=== PATIENT | female | born 1995 | race Caucasian/White ===

== ENCOUNTER 2018-05-21 00:55 | Inpatient (IN) | payer BC ==
[~2018-05-21] VITALS: Ht 162.6 cm; Wt 47.2 kg
[2018-05-21] MEDS ORDERED: Sodium Chloride 500ML 500 ML IV ONE (00:59)
[2018-05-21] MEDS ORDERED: Solu-MEDROL 125mg Inj IVP ONE (01:00)
[2018-05-21] MEDS ORDERED: DiphenhydrAMINE 50mg/ml Inj IVP ONE (01:00)
[2018-05-21 01:26] VITALS: BP 105/45
[2018-05-21 01:32] LABS: EOSINOPHILS % (AUTO) 2.7 % (0.0-3.0); HEMATOCRIT 42.6 % (37.0-47.0); HEMOGLOBIN 14.1 G/DL (12.0-16.0); LYMPHOCYTES % (AUTO) 40.7 % (20.0-45.0); MEAN CORPUSCULAR VOLUME 85 FL (80-99); MONOCYTES % (AUTO) 4.1 % (1.0-10.0); NEUTROPHILS % (AUTO) 51.5 % (45.0-75.0); PLATELET COUNT 271 K/UL (150-450); RED BLOOD COUNT 4.99 M/UL (4.20-5.40); RED CELL DISTRIBUTION WIDTH 12.5 % (11.6-14.8); WHITE BLOOD COUNT 8.8 K/UL (4.8-10.8)
[2018-05-21 01:43] LABS: ANION GAP 16 mmol/L (5-15); BLOOD UREA NITROGEN 19 mg/dL (7-18); CALCIUM 8.2 MG/DL (8.5-10.1); CARBON DIOXIDE 19 MMOL/L (21-32); CHLORIDE 104 MMOL/L (98-107); POTASSIUM 3.2 MMOL/L (3.5-5.1); SODIUM 139 MMOL/L (136-145)
[2018-05-21 01:54] LABS: ALANINE AMINOTRANSFERASE 30 U/L (12-78); ALBUMIN 3.5 G/DL (3.4-5.0); ALBUMIN/GLOBULIN RATIO 1.1 (1.0-2.7); ALKALINE PHOSPHATASE 40 U/L (46-116); ASPARTATE AMINO TRANSFERASE 31 U/L (15-37); BILIRUBIN,TOTAL 0.1 MG/DL (0.2-1.0); CREATINE KINASE 214 U/L (26-308)
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
--- NOTE | 2018-05-21 02:52 | Diagnostic Imaging Report ---
EXAM: XR Chest, 1 View CLINICAL HISTORY: DYSPNEA TECHNIQUE: Frontal view of the chest. COMPARISON: No relevant prior studies available. FINDINGS: Lungs: Unremarkable. No consolidation. Pleural space: Unremarkable. No pneumothorax. Heart: Unremarkable. No cardiomegaly. Mediastinum: Unremarkable. Bones/joints: Unremarkable. IMPRESSION: No acute findings.
[2018-05-21 05:25] VITALS: BP 98/35
[2018-05-21] MEDS ORDERED: TOPAMAX25 MG ORAL (05:30)
[2018-05-21] MEDS ORDERED: NALTREXONE HCL50 MG PO (05:30)
[2018-05-21] MEDS ORDERED: PROZAC20 MG ORAL (05:30)
[2018-05-21] MEDS ORDERED: VIVANCE PO (05:30)
[2018-05-21] MEDS ORDERED: SPIRONOLACTONE50 MG ORAL (05:30)
[2018-05-21 06:40] VITALS: BP 95/40
[2018-05-21 07:10] LABS: APPEARANCE,URINE CLEAR; BILIRUBIN, URINE NEGATIVE (NEGATIVE); COLOR,URINE PALE YELLOW; GLUCOSE, URINE (UA) NEGATIVE (NEGATIVE); KETONES,URINE 1+ (NEGATIVE); LEUKOCYTE ESTERASE ,URINE 2+ (NEGATIVE); NITRITE,URINE NEGATIVE (NEGATIVE); PH,URINE 5 (4.5-8.0); PROTEIN,URINE NEGATIVE (NEGATIVE); UROBILINOGEN,URINE NORMAL MG/DL (0.0-1.0)
[2018-05-21 08:00] VITALS: BP 119/72
[2018-05-21] MEDS: D5 1/2NS 1,000 ML IV SCH ×2 (10:30→18:30)
[2018-05-21 16:00] VITALS: BP 124/69
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
[2018-05-21] MEDS ORDERED: Milk of Magnesia 30ml Ud ORAL PRN (21:00)
[2018-05-21] MEDS ORDERED: Zolpidem 5mg tab ORAL PRN (21:00)
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
== END 2018-05-21 19:30 | disposition left against medical advice (07) | DRG 916 ==
LOC: EDBD 00:55 → EMR 01:34 → 2E 05:45 → EDBEDREQ 06:08
DX: T78.49XA Other allergy, initial encounter (principal); E87.2 Acidosis; X58.XXXA Exposure to other specified factors, initial encounter; J70.5 Respiratory conditions due to smoke inhalation; Z77.22 Contact with and (suspected) exposure to environmental tobacco smoke (acute) (chronic); E87.6 Hypokalemia; I95.9 Hypotension, unspecified; F32.9 Major depressive disorder, single episode, unspecified
CPT/HCPCS: 36415; 71045; 80053; 81003; 82550; 83605; 83880; 84484; 85025; 85610; 85730; 93005; 99285; J8499